=== PATIENT | female | born 1990 | race Caucasian/White ===

== ENCOUNTER 2018-03-07 20:02 | Inpatient (IN) | END 2018-03-10 17:37 | disposition home or self-care (01) | DRG 775 ==

== ENCOUNTER 2019-03-10 22:00 | Emergency (ER) | payer MEDICAID ==
[~2019-03-10] VITALS: Ht 152.4 cm; Wt 62.8 kg
[~2019-03-10 22:00] MED LIST: IBUP-1542 PO; POLY10DR19 BOTH EYES
[2019-03-10 22:07] VITALS: Ht 152.4 cm; Wt 62.8 kg
[2019-03-10] MEDS ORDERED: ONDANSETRON (ODT) 4 MG TAB ODT STA (22:51)
[2019-03-10] MEDS ORDERED: FLUORESCEIN STRIP RIGHT EYE ONE (23:00)
[2019-03-10] MEDS ORDERED: TETRACAINE 0.5% 4 ML OPH RIGHT EYE ONE (23:00)
[2019-03-10] MEDS ORDERED: HYDROCODONE/APAP (5/325) TAB PO ONE (23:00)
[2019-03-11] MEDS ORDERED: CEFEPIME 1GM/50 ML (PMX) 50 ML IVPB ONE (10:30)
[2019-03-11] MEDS ORDERED: VANCOMYCIN 1 GM (PMX) 250 ML IVPB ONE (10:30)
[2019-03-11] MEDS ORDERED: DIPHENHYDRAMINE 50 MG INJ ONE (11:26)
[2019-03-11] MEDS ORDERED: DIPHENHYDRAMINE 50 MG INJ IV ONE ×2 (11:30)
[2019-03-11 12:00] VITALS: BP 120/73; PULSE 58; RESP 12
== END 2019-03-11 12:22 | disposition home or self-care (01) ==
LOC: FTE 22:00 → E/R 03-11 12:22
DX: S05.31XA Ocular laceration without prolapse or loss of intraocular tissue, right eye, initial encounter (principal); W22.8XXA Striking against or struck by other objects, initial encounter; Y92.9 Unspecified place or not applicable
CPT/HCPCS: 76536; 96365; 96367; 96375; J0692; J1200; J3370; Z7502; Z7610